=== PATIENT | female | born 1940 | race Caucasian/White ===

== ENCOUNTER 2017-02-01 06:46 | Emergency (ER) | payer SELFPAY ==
[2017-02-01 07:03] VITALS: RESP 16; O2SAT 100
[2017-02-01] MEDS ORDERED: Sodium Chloride 0.9% 1,000 ML IV ONE (07:18)
[2017-02-01] MEDS ORDERED: Sodium Chloride 0.9% 1,000 ML ONE (07:26)
--- NOTE | 2017-02-01 07:35 | C.PDOC ---
History Of Present Illness 76 year old female, with past medical history of hypertension, hypercholesterolemia, hypothyroidism, presents to Emergency Department for evaluation of non-radiating right upper quadrant abdominal pain for the last 2 days. Patient states that pain was initially intermittent but became more constant. Otherwise, patient denies nausea, vomiting, diarrhea, constipation, urinary symptoms, fever, or chills. Time Seen by Provider: 02/01/17 07:11 Chief Complaint (Nursing): Abdominal Pain History Per: Patient History/Exam Limitations: no limitations Onset/Duration Of Symptoms: Days (2) Current Symptoms Are (Timing): Still Present Location Of Pain/Discomfort: RUQ Radiation Of Pain To:: None Quality Of Discomfort: "Pain" Associated Symptoms: denies: Fever, Chills, Loss Of Appetite, Back Pain, Chest Pain, Constipation, Urinary Symptoms Exacerbating Factors: None Alleviating Factors: None Additional History Per: Patient Abnormal Vaginal Bleeding: No Past Medical History Reviewed: Historical Data, Nursing Documentation, Vital Signs Vital Signs: Last Vital Signs Temp 97.7 F 02/01/17 09:09 Pulse 64 02/01/17 09:09 Resp 16 02/01/17 09:09 BP 169/72 H 02/01/17 09:09 Pulse Ox 100 02/01/17 09:09 - Medical History PMH: HTN, Hypercholesterolemia, Hypothyroidism, Pneumonia (10/2015) Surgical History: Appendectomy Other Surgeries: Fibroid removal Family History: States: Unknown Family Hx - Social History Hx Tobacco Use: No Hx Alcohol Use: No Hx Substance Use: No - Immunization History Hx Tetanus Toxoid Vaccination: No Hx Influenza Vaccination: Yes Hx Pneumococcal Vaccination: Yes Review Of Systems Except As Marked, All Systems Reviewed And Found Negative. Constitutional: Negative for: Fever, Chills Cardiovascular: Negative for: Chest Pain, Palpitations Respiratory: Negative for: Cough, Shortness of Breath Gastrointestinal: Positive for: Abdominal Pain. Negative for: Nausea, Vomiting , Diarrhea, Constipation Genitourinary: Negative for: Dysuria, Frequency, Hematuria, Vaginal Discharge Neurological: Negative for: Headache, Dizziness Physical Exam - Physical Exam Appears: Non-toxic, No Acute Distress Skin: Normal Color, Warm, Dry Head: Atraumatic, Normacephalic Eye(s): bilateral: Normal Inspection Oral Mucosa: Moist Neck: Supple Chest: Symmetrical, No Deformity Cardiovascular: Rhythm Regular, No Murmur Respiratory: Normal Breath Sounds, No Rales, No Rhonchi, No Wheezing Gastrointestinal/Abdominal: Soft, Tenderness (RUQ), No Guarding, No Rebound, No Other ((-)Rebolledo's sign) Back: Normal Inspection, No CVA Tenderness Extremity: Normal ROM, Capillary Refill (less than 2 seconds) Neurological/Psych: Oriented x3, Normal Speech ED Course And Treatment - Laboratory Results Result Diagrams: 02/01/17 07:53 02/01/17 07:53 ECG: Interpreted By Me, Viewed By Me ECG Rhythm: Sinus Rhythm ECG Interpretation: Normal Rate From EC (bpm) O2 Sat by Pulse Oximetry: 100 (on RA) Pulse Ox Interpretation: Normal - CT Scan/US Abdomen ultrasound Other Rad Studies (CT/US): Read By Radiologist, Radiology Report Reviewed CT/US Interpretation: Accession No. : [id number]. Patient Name / ID : LUKAS FISHER / [id number]. Exam Date : 02/01/2017 07:56:25 ( Approved ). Study Comment : Sex / Age : F / 76Y. Creator : Carina Cruz. Dictator : Carina Cruz. Heating And Blending Supervisor : Chore Worker : Carina Cruz. Approver2 : Report Date : 02/01/2017 08:34:03. My Comment : . HISTORY: RUQ pain, poss gb stone. COMPARISON: None. TECHNIQUE: Sonographic evaluation of the abdomen. FINDINGS: LIVER: Measures 13.9 cm. Moderately increased echogenicity of the liver parenchyma. No mass. No intrahepatic bile duct dilatation. There is hypoechoic cyst seen at the right liver lobe measures 1.4 x 1.5 x 1.6 centimeter. GALLBLADDER: Unremarkable. No gallstones. COMMON BILE DUCT: Measures 6.3 mm. No stones. No dilatation. PANCREAS: Unremarkable as visualized. No mass. No ductal dilatation. RIGHT KIDNEY: Measures 9.3 x 4.1 x 5.6cm. Normal echogenicity. No calculus, mass, or hydronephrosis. LEFT KIDNEY: Measures 8.9 x 4.9 x 5.5cm. Normal echogenicity. No calculus, mass, or hydronephrosis. SPLEEN: Normal in size and contour. No mass. AORTA: No aneurysmal dilatation. IVC: Unremarkable. OTHER FINDINGS: None. IMPRESSION : Echogenic liver suggestive of hepatic steatosis. No evidence of cholelithiasis or cholecystitis. No evidence of acute pathology in the abdomen. If clinically warranted further assessment by CT or MRI of the abdomen may be obtained. Small cyst seen at the right liver lobe. Medical Decision Making Medical Decision Making: Plan: * Blood work, UA * Abdomen ultrasound * IV fluids, Pepcid, Toradol * Reassess and disposition Progress note: Labs reviewed unremarkable US shows no gallstones, hepatic steatosis 0841: On reassessment, patient is resting comfortably, no acute distress. Abdomen remains soft, negative Rebolledo's sign. Patient reports feeing better, with improvement of pain. She feels comfortable going home and will be discharged. Disposition Counseled Patient/Family Regarding: Studies Performed, Diagnosis, Need For Followup, Rx Given - Disposition Referrals: Ne Turpin MD [Staff Provider] - Disposition: HOME/ ROUTINE Disposition Time: 08:55 Condition: IMPROVED Additional Instructions: Sissy laboratorios y ultrasonido muestran esteatosis heptica. Por favor, siga con brown mdico de cabecera para ms evalaution. [employer] medicamentos para el dolor segn sea necesario. Siga la dieta blanda. Regrese al servicio de urgencias en cualquier momento si los sntomas persisten o empeoran. Prescriptions: Dicyclomine [Bentyl] 10 mg PO QID #20 cap Instructions: Non-Alcoholic Fatty Liver Disease (ED), Low Fat Diet (DC) Forms: [employer] ([place]) Print Language: MOHAWK - POA Present On Arrival: None - Clinical Impression Clinical Impression: RUQ abdominal pain, Simple hepatic cyst - PA / TECHNICAL SUPPORT MANAGER / Resident Statement MD/DO has reviewed & agrees with the documentation as recorded. - Scribe Statement The provider has reviewed the documentation as recorded by the Terryibmanolo Salinas All medical record entries made by the Scribe were at my direction and personally dictated by me. I have reviewed the chart and agree that the record accurately reflects my personal performance of the history, physical exam, medical decision making, and the department course for this patient. I have also personally directed, reviewed, and agree with the discharge instructions and disposition.
[2017-02-01 07:57] LABS: BASO # 0.1 K/uL (0.0-0.2); BASO % 0.8 % (0.0-2.0); EOS # 0.3 K/uL (0.0-0.7); EOS % 3.7 % (0.0-4.0); HEMATOCRIT 37.6 % (34.0-47.0); LYMPH # 2.4 K/uL (1.0-4.3); LYMPH % 32.8 % (20.0-40.0); MEAN CORPUSCULAR HEMOGLOBIN 30.8 pg (27.0-31.0); MEAN CORPUSCULAR HGB CONC 34.6 g/dL (33.0-37.0); MEAN PLATELET VOLUME 7.8 fL (7.2-11.7); MONO # 0.7 K/uL (0.0-0.8); MONO % 9.6 % (0.0-10.0); RED CELL DISTRIBUTION WIDTH 13.7 % (11.5-14.5); WHITE BLOOD COUNT 7.2 K/uL (4.8-10.8)
[2017-02-01 08:05] LABS: CHLORIDE 101 mmol/L (98-107)
[2017-02-01 08:06] LABS: POTASSIUM 3.8 mmol/L (3.6-5.2); SODIUM 145 mmol/L (132-148)
[2017-02-01 08:08] LABS: ALB/GLOB RATIO 1.2 (1.0-2.1); ALKALINE PHOSPHATASE 91 U/L (38-126); AST/SGOT 33 U/L (14-36); BILIRUBIN,TOTAL 0.7 mg/dL (0.2-1.3); CARBON DIOXIDE 25 mmol/L (22-30); GFR AFRICAN-AMERICAN > 60; TOTAL PROTEIN 8.3 g/dL (6.3-8.3)
[2017-02-01 08:09] LABS: ALT/SGPT 49 U/L (9-52); BLOOD UREA NITROGEN 21 mg/dL (7-17); CALCIUM 9.4 mg/dl (8.6-10.4); GLUCOSE,RANDOM 98 mg/dL (65-105)
[2017-02-01 08:11] LABS: RBC URINE 2 /hpf (0-3); URINE BACTERIA MANY (<OCC); URINE BILIRUBIN NEGATIVE (NEGATIVE); URINE BLOOD 1+ (NEGATIVE); URINE COLOR Yellow (YELLOW); URINE GLUCOSE (UA) NORMAL (Normal); URINE KETONE NEGATIVE (NEGATIVE); URINE LEUKOCYTE ESTERASE TRACE Leu/uL (Negative); URINE PROTEIN NEGATIVE (NEGATIVE); URINE UROBILINOGEN NORMAL mg/dL (0.2-1.0); WBC URINE 18 /hpf (0-5)
--- NOTE | 2017-02-01 08:35 | US ---
HISTORY: RUQ pain, poss gb stone COMPARISON: None. TECHNIQUE: Sonographic evaluation of the abdomen. FINDINGS: LIVER: Measures 13.9 cm. Moderately increased echogenicity of the liver parenchyma. No mass. No intrahepatic bile duct dilatation. There is hypoechoic cyst seen at the right liver lobe measures 1.4 x 1.5 x 1.6 centimeter. GALLBLADDER: Unremarkable. No gallstones. COMMON BILE DUCT: Measures 6.3 mm. No stones. No dilatation. PANCREAS: Unremarkable as visualized. No mass. No ductal dilatation. RIGHT KIDNEY: Measures 9.3 x 4.1 x 5.6cm. Normal echogenicity. No calculus, mass, or hydronephrosis. LEFT KIDNEY: Measures 8.9 x 4.9 x 5.5cm. Normal echogenicity. No calculus, mass, or hydronephrosis. SPLEEN: Normal in size and contour. No mass. AORTA: No aneurysmal dilatation. IVC: Unremarkable. OTHER FINDINGS: None. IMPRESSION: Echogenic liver suggestive of hepatic steatosis. No evidence of cholelithiasis or cholecystitis. No evidence of acute pathology in the abdomen. If clinically warranted further assessment by CT or MRI of the abdomen may be obtained. Small cyst seen at the right liver lobe.
[2017-02-01 09:13] VITALS: BP 169/72; PULSE 64; TEMP 97.7
--- NOTE | 2017-02-05 22:12 | CARD ---
APPROVED REPORT EKG Measurement Heart [id number] <Conclusion> Normal sinus rhythm Normal ECG
== END 2017-02-01 09:13 | disposition home or self-care (01) ==
LOC: C.ER 06:46
DX: R10.11 Right upper quadrant pain (principal); K76.89 Other specified diseases of liver
CPT/HCPCS: 76700; 80053; 81001; 83690; 85025; 96361; 96374; 96375; 99285; J1885; J7040